=== PATIENT | female | born 1995 | race Hispanic/Latino ===

== ENCOUNTER 2021-10-04 22:15 | Emergency (ER) | payer BC ==
[2021-10-04 23:05] LABS: #Eosinphils 0.3 10x3/uL (0.0-0.5); %Basophils 0.3 % (0.0-2.0); %Eosinophils 2.7 % (0.0-6.0); %Monocytes 8.5 % (0.0-10.0); %Neutrophils 67.2 % (40.0-75.0); Hemoglobin 11.7 g/dL (12.0-15.5); Mean Corpuscular HGB CONC 32.7 g/dL (32.0-36.0); Mean Corpuscular Hemoglobin 25.7 pg (27.0-33.0); Mean Corpuscular Volume 78.7 fl (81.6-98.3); Mean Platelet Volume 9.8 fl (7.4-10.4); Platelet Count 381 10x3/uL (150-450); RBC Distribution Width 13.7 % (11.5-14.5); Red Blood Cell (RBC) Count 4.55 10x6/uL (3.90-5.03); White Blood Cell (WBC) Count 11.9 10x3/uL (3.5-10.5)
[2021-10-04 23:18] LABS: ALT (SGPT) 12 U/L (8-55); AST (SGOT) 14 U/L (5-34); Alkaline Phosphatase 79 U/L (40-110); Anion Gap 12 mmol/L (10-20); BUN (Urea Nitrogen) 12 mg/dL (7.0-18.7); Bilirubin, Total 0.2 mg/dL (0.2-1.2); Calc. Creatinine Clearance 0 mL/min (70-130); Calcium 9.1 mg/dL (7.8-10.44); Carbon Dioxide 24 mmol/L (22-29); Chloride 106 mmol/L (98-107); Estimated GFR 105; Globulin 3.1 g/dL (2.4-3.5); Glucose 88 mg/dL (70-105); Potassium 3.7 mmol/L (3.5-5.1); Protein, Total 7.1 g/dL (6.0-8.3); Sodium 138 mmol/L (136-145)
== END 2021-10-05 00:35 | disposition home or self-care (01) ==
LOC: CSHERS 22:15
DX: O20.0 Threatened abortion (principal); O99.511 Diseases of the respiratory system complicating pregnancy, first trimester; J45.909 Unspecified asthma, uncomplicated; Z3A.01 Less than 8 weeks gestation of pregnancy
CPT/HCPCS: 36415; 76856; 80053; 84702; 85025; 86900; 86901

== ENCOUNTER 2021-10-08 18:49 | Emergency (ER) | payer BC ==
[2021-10-08 20:27] LABS: #Basophils 0.1 10x3/uL (0.0-0.2); #Eosinphils 0.2 10x3/uL (0.0-0.5); #Monocytes 0.7 10x3/uL (0.0-1.1); #Neutrophils 5.3 10x3/uL (1.5-8.4); %Basophils 0.8 % (0.0-2.0); %Eosinophils 2.4 % (0.0-6.0); %Lymphocytes 21.2 % (18.0-47.0); %Monocytes 8.5 % (0.0-10.0); %Neutrophils 66.8 % (40.0-75.0); Hemoglobin 12.2 g/dL (12.0-15.5); Mean Corpuscular HGB CONC 32.2 g/dL (32.0-36.0); Mean Corpuscular Volume 80.6 fl (81.6-98.3); Mean Platelet Volume 10.1 fl (7.4-10.4); Platelet Count 391 10x3/uL (150-450); RBC Distribution Width 14.1 % (11.5-14.5)
== END 2021-10-08 22:48 | disposition home or self-care (01) ==
LOC: CSHERS 18:49
DX: O20.0 Threatened abortion (principal); Z3A.01 Less than 8 weeks gestation of pregnancy
CPT/HCPCS: 76856; 84702; 85025; 86900; 86901

== ENCOUNTER 2021-10-09 20:27 | Emergency (ER) | payer BC ==
[2021-10-09 21:18] LABS: Bilirubin Neg (Negative); Blood, Urine 250 (Negative); Clarity Cloudy (Clear); Glucose, Urine (Dipstick) Normal (Negative); Ketone, Urine 5 mg/dL (Negative); Leukocyte 25 (Negative); Nitrite Negative (Negative); Protein, Urine (Dipstick) 30 mg/dl (Neg-Trace); Specific Gravity, Urine 1.025 (1.002-1.036); Urobilinogen Normal mg/dL (Less than 2)
[2021-10-09 21:30] LABS: Bacteria/HPF 1+ HPF (None Seen); Mucous/LPF None Seen LPF (<2+); RBC/HPF Greater than 50 HPF (0-3); Squamous Epithelial 0-3 HPF (0-3); WBC/HPF 0-3 HPF (0-3)
[2021-10-09] MEDS ORDERED: Morphine 4 MG/ML VIAL ONE ×2 (21:34→23:36)
[2021-10-09 21:51] LABS: #Eosinphils 0.2 10x3/uL (0.0-0.5); #Neutrophils 8.8 10x3/uL (1.5-8.4); %Basophils 0.3 % (0.0-2.0); %Eosinophils 1.7 % (0.0-6.0); %Lymphocytes 16.6 % (18.0-47.0); %Monocytes 8.4 % (0.0-10.0); %Neutrophils 72.8 % (40.0-75.0); Mean Corpuscular HGB CONC 33.1 g/dL (32.0-36.0); Mean Corpuscular Volume 78.6 fl (81.6-98.3); Mean Platelet Volume 10.3 fl (7.4-10.4); Platelet Count 382 10x3/uL (150-450); RBC Distribution Width 14.4 % (11.5-14.5); Red Blood Cell (RBC) Count 4.62 10x6/uL (3.90-5.03); White Blood Cell (WBC) Count 12.1 10x3/uL (3.5-10.5)
[2021-10-10] MEDS ORDERED: Ondansetron PF 4 MG/2 ML Vial ONE ×2 (00:08→04:03)
[2021-10-10] MEDS ORDERED: Rocuronium Bromide 10 MG/ML (10ML VIAL) ONE (00:08)
[2021-10-10] MEDS ORDERED: Lidocaine 1% PF 5 ML VIAL ONE (00:08)
[2021-10-10] MEDS ORDERED: Dexamethasone 4 mg/ml Vial ONE (00:08)
[2021-10-10] MEDS ORDERED: Succinylcholine 200 MG/10 ml SYRINGE FS ONE (00:08)
[2021-10-10] MEDS ORDERED: PROPOFOL 20 ML ONE (00:08)
[2021-10-10] MEDS ORDERED: Fentanyl 250 MCG/5 ML VIAL ONE (00:08)
[2021-10-10] MEDS ORDERED: Bupivacaine 0.25% HCL 30 ML VIAL ONE (00:10)
[2021-10-10] MEDS ORDERED: EPINEPHrine 1 MG/ML AMP ONE (00:10)
[2021-10-10] MEDS ORDERED: Midazolam HCl 2 mg/2 ml Vial ONE ×2 (00:25→02:47)
[2021-10-10] MEDS ORDERED: Glycopyrrolate 0.2 MG/ML 5 ML SYRINGE ONE (02:05)
[2021-10-10] MEDS ORDERED: Ketorolac Tromethamine 30 MG/ML VIAL ONE (02:34)
== END 2021-10-10 00:31 | disposition admitted as inpatient to this hospital (09) ==
LOC: CSHERS 20:27
PROC: 10T24ZZ Resection of Products of Conception, Ectopic, Percutaneous Endoscopic Approach (ICD-10-PCS; principal; 2021-10-10)
PROC: 0UB64ZZ Excision of Left Fallopian Tube, Percutaneous Endoscopic Approach (ICD-10-PCS; 2021-10-10)
DX: O00.102 Left tubal pregnancy without intrauterine pregnancy (principal)
CPT/HCPCS: 36415; 76856; 81003; 81015; 84702; 85025; 86850; 86900; 86901; 88305; 96372; 96374; C1776; J0171; J1100; J1885; J2250; J2270; J2405; J2704; J3010; S0020

== ENCOUNTER 2022-07-20 18:25 | Day surgery (SDC) | payer BC ==
[2022-07-20 18:41] VITALS: BMI 32.0
[2022-07-20] MEDS ORDERED: hydrALAZINE 20 MG/ML VIAL SLOW IVP PRN (19:58)
== END 2022-07-20 19:32 | disposition home or self-care (01) ==
LOC: CSHLD/OP 18:25
PROVIDERS: ATTEND Obstetrics & Gynecology
DX: O36.8120 Decreased fetal movements, second trimester, not applicable or unspecified (principal); Z79.899 Other long term (current) drug therapy; Z3A.22 22 weeks gestation of pregnancy

== ENCOUNTER 2022-08-13 19:46 | Day surgery (SDC) | payer BC, OTHER ==
[2022-08-13 20:47] LABS: Fetal Membranes Rupture No Membranes Rupture (No Rupture)
[2022-08-13] MEDS ORDERED: hydrALAZINE 20 MG/ML VIAL SLOW IVP PRN (21:20)
== END 2022-08-13 23:10 | disposition home or self-care (01) ==
LOC: CSHLD/OP 19:46
PROVIDERS: ATTEND Obstetrics & Gynecology
DX: O99.891 Other specified diseases and conditions complicating pregnancy (principal); O23.42 Unspecified infection of urinary tract in pregnancy, second trimester; N39.0 Urinary tract infection, site not specified; O99.512 Diseases of the respiratory system complicating pregnancy, second trimester; J45.909 Unspecified asthma, uncomplicated; Z3A.25 25 weeks gestation of pregnancy; R05.9 Cough, unspecified
CPT/HCPCS: 76705; 84112; 99283

== ENCOUNTER 2022-10-27 18:24 | Inpatient (IN) | payer BC, OTHER ==
[2022-10-27 18:41] VITALS: BMI 34.5
[2022-10-27] MEDS ORDERED: hydrALAZINE 20 MG/ML VIAL SLOW IVP PRN ×2 (19:05→20:04)
[2022-10-27] MEDS ORDERED: Lactated Ringer's 1,000 ML IV SCH ×2 (19:15→20:15)
[2022-10-27 20:02] LABS: Bilirubin Neg (Negative); Blood, Urine Negative (Negative); Glucose, Urine (Dipstick) Normal (Negative); Ketone, Urine Negative (Negative); Leukocyte 100 (Negative); Nitrite Negative (Negative); Protein, Urine (Dipstick) Negative (Neg-Trace); Urobilinogen Normal mg/dL (Less than 2)
[2022-10-27 20:03] LABS: Clarity Clear (Clear)
[2022-10-27] MEDS ORDERED: Acetaminophen 500 MG TAB PO PRN (20:04)
[2022-10-27] MEDS ORDERED: Carboprost 250 MCG/ML AMP IM PRN (20:04)
[2022-10-27] MEDS ORDERED: Ondansetron PF 4 MG/2 ML Vial IVP PRN (20:04)
[2022-10-27] MEDS ORDERED: Methylergonovine 0.2 MG/ML VIAL IM PRN (20:04)
[2022-10-27] MEDS ORDERED: Tranexamic Acid 1,000 MG/10 ML VIAL IVP PRN (20:04)
[2022-10-27] MEDS ORDERED: fentaNYL 50 mcg/mL 1 mL Vial SLOW IVP PRN (20:04)
[2022-10-27] MEDS ORDERED: Promethazine HCl 25 MG/ML VIAL IM PRN (20:04)
[2022-10-27] MEDS ORDERED: Misoprostol 200 MCG TAB PR PRN (20:04)
[2022-10-27] MEDS ORDERED: Zolpidem Tartrate 5 MG TAB PO PRN (20:04)
[2022-10-27] MEDS ORDERED: Diphenoxylate HCl/Atropine Tablet PO PRN (20:04)
[2022-10-27] MEDS ORDERED: Lidocaine 1% (PF) 30 ML VIAL SC PRN (20:04)
[2022-10-27] MEDS ORDERED: Penicillin G Potassium 5 MILL.UNITS in Sodium Chloride 0.9% 100 ML IVPB SCH (20:15)
[2022-10-27] MEDS ORDERED: NS w/ Oxytocin 30 units 500 ML IV SCH (20:15)
[2022-10-27] MEDS ORDERED: Betamet Acet/Betamet Na Ph 30 MG/5 ML VIAL IM SCH (20:15)
[2022-10-27 20:19] LABS: Bacteria/HPF None Seen HPF (None Seen); CAUTI Indications for Culture Pelvic or flank pain; RBC/HPF None Seen HPF (0-3); Squamous Epithelial 0-3 HPF (0-3); Urine Culture Reflex No No; WBC/HPF 0-3 HPF (0-3)
[2022-10-27 20:44] LABS: Hematocrit 31.4 % (34.9-44.5); Hemoglobin 9.8 g/dL (12.0-15.5); Mean Corpuscular HGB CONC 31.2 g/dL (32.0-36.0); Mean Corpuscular Hemoglobin 23.4 pg (27.0-33.0); Mean Corpuscular Volume 75.1 fl (81.6-98.3); Mean Platelet Volume 10.5 fl (7.4-10.4); Platelet Count 344 10x3/uL (150-450); RBC Distribution Width 18.9 % (11.5-14.5); Red Blood Cell (RBC) Count 4.18 10x6/uL (3.90-5.03); White Blood Cell (WBC) Count 11.3 10x3/uL (3.5-10.5)
[2022-10-27 21:09] LABS: HBSAg Index 0.32 S/CO (0-0.99); Hep B Surf Ag - L&D Non-Reactive S/CO (NonReactive); Syphilis Antibody Nonreactive (Nonreactive); Syphilis Antibody Index 0.17 S/CO (<1.00 Non-Reactive)
[2022-10-27] MEDS ORDERED: Penicillin G 2.5 MILL.units 2.5 MILL.UNITS in Premix Bag 1 BAG IVPB SCH (23:59)
== END 2022-10-28 06:50 | disposition home or self-care (01) | DRG 832 ==
LOC: CSHLD/OP 18:24 → CSHLD 20:31
PROVIDERS: ADMIT Obstetrics & Gynecology; ATTEND Obstetrics & Gynecology
DX: O60.03 Preterm labor without delivery, third trimester (principal); O26.873 Cervical shortening, third trimester; Z3A.36 36 weeks gestation of pregnancy
CPT/HCPCS: 81001; 85027; 86780; 86850; 86900; 86901; 87340; 99285; J2405; J2540; J3010; J3490

== ENCOUNTER 2022-11-07 21:46 | Observation (INO) | payer BC, OTHER ==
[2022-11-07 22:23] VITALS: BMI 36.3
[2022-11-07] MEDS ORDERED: hydrALAZINE 20 MG/ML VIAL SLOW IVP PRN (22:26)
[2022-11-08] MEDS ORDERED: fentaNYL 50 mcg/mL 1 mL Vial SLOW IVP SCH (00:45)
[2022-11-08] MEDS ORDERED: Lactated Ringer's 1,000 ML IV SCH (01:00)
[2022-11-08] MEDS ORDERED: hydrALAZINE 20 MG/ML VIAL SLOW IVP PRN (01:31)
[2022-11-08] MEDS ORDERED: Ondansetron PF 4 MG/2 ML Vial IVP PRN (01:31)
[2022-11-08] MEDS ORDERED: Diphenoxylate HCl/Atropine Tablet PO PRN (01:31)
[2022-11-08] MEDS ORDERED: Methylergonovine 0.2 MG/ML VIAL IM PRN (01:31)
[2022-11-08] MEDS ORDERED: Misoprostol 200 MCG TAB PR PRN (01:31)
[2022-11-08] MEDS ORDERED: Lidocaine 1% (PF) 30 ML VIAL SC PRN (01:31)
[2022-11-08] MEDS ORDERED: Carboprost 250 MCG/ML AMP IM PRN (01:31)
[2022-11-08] MEDS ORDERED: Promethazine HCl 25 MG/ML VIAL IM PRN (01:31)
[2022-11-08] MEDS ORDERED: fentaNYL 50 mcg/mL 1 mL Vial SLOW IVP PRN (01:31)
[2022-11-08] MEDS ORDERED: Tranexamic Acid 1,000 MG/10 ML VIAL IVP PRN (01:31)
[2022-11-08] MEDS ORDERED: Ibuprofen 800 MG TAB PO PRN (01:31)
[2022-11-08] MEDS ORDERED: NS w/ Oxytocin 30 units 500 ML IV SCH (01:45)
== END 2022-11-08 07:22 | disposition home or self-care (01) ==
LOC: CSHLD/OP 21:46 → CSHLD 11-08 01:31
PROVIDERS: ADMIT Obstetrics & Gynecology; ATTEND Obstetrics & Gynecology
DX: O47.1 False labor at or after 37 completed weeks of gestation (principal); O26.873 Cervical shortening, third trimester; Z79.899 Other long term (current) drug therapy; Z3A.37 37 weeks gestation of pregnancy
CPT/HCPCS: 99285; G0378; J3010

== ENCOUNTER 2022-11-11 02:29 | Inpatient (IN) | payer BC, OTHER ==
[2022-11-11 02:55] VITALS: BMI 36.7
[2022-11-11 03:28] LABS: Fetal Membranes Rupture No Membranes Rupture (No Rupture)
[2022-11-11] MEDS ORDERED: Zolpidem Tartrate 5 MG TAB PO PRN (06:21)
[2022-11-11] MEDS ORDERED: Diphenoxylate HCl/Atropine Tablet PO PRN (06:21)
[2022-11-11] MEDS ORDERED: fentaNYL 50 mcg/mL 1 mL Vial SLOW IVP PRN (06:21)
[2022-11-11] MEDS ORDERED: Tranexamic Acid 1,000 MG/10 ML VIAL IVP PRN (06:21)
[2022-11-11] MEDS ORDERED: Misoprostol 200 MCG TAB PR PRN (06:21)
[2022-11-11] MEDS ORDERED: Lidocaine 1% (PF) 30 ML VIAL SC PRN (06:21)
[2022-11-11] MEDS ORDERED: Acetaminophen 500 MG TAB PO PRN (06:21)
[2022-11-11] MEDS ORDERED: hydrALAZINE 20 MG/ML VIAL SLOW IVP PRN ×2 (06:21→19:21)
[2022-11-11] MEDS ORDERED: Methylergonovine 0.2 MG/ML VIAL IM PRN (06:21)
[2022-11-11] MEDS ORDERED: Promethazine HCl 25 MG/ML VIAL IM PRN ×2 (06:21→07:43)
[2022-11-11] MEDS ORDERED: Ondansetron PF 4 MG/2 ML Vial IVP PRN ×2 (06:21→07:43)
[2022-11-11] MEDS ORDERED: Carboprost 250 MCG/ML AMP IM PRN (06:21)
[2022-11-11] MEDS ORDERED: NS w/ Oxytocin 30 units 500 ML IV SCH ×2 (06:30)
[2022-11-11] MEDS ORDERED: Lactated Ringer's 1,000 ML IV SCH (06:30)
[2022-11-11 06:59] LABS: Hematocrit 29.7 % (34.9-44.5); Hemoglobin 9.5 g/dL (12.0-15.5); Mean Corpuscular Hemoglobin 23.8 pg (27.0-33.0); Mean Corpuscular Volume 74.3 fl (81.6-98.3); Mean Platelet Volume 10.8 fl (7.4-10.4); Platelet Count 308 10x3/uL (150-450); RBC Distribution Width 18.7 % (11.5-14.5); White Blood Cell (WBC) Count 10.8 10x3/uL (3.5-10.5)
[2022-11-11] MEDS ORDERED: fentaNYL/Ropivacaine Epidural 100 ML ONE ×2 (07:02→14:32)
[2022-11-11] MEDS ORDERED: diphenhydrAMINE 50 MG/ML VIAL IVP PRN (07:43)
[2022-11-11] MEDS ORDERED: ePHEDrine Sulfate 50 MG/10 ML VIAL SLOW IVP PRN (07:43)
[2022-11-11] MEDS ORDERED: Acetaminophen 325 MG TAB PO PRN (07:43)
[2022-11-11] MEDS ORDERED: Moisturizing Cream (Eucerin) 113 GM JAR TOP PRN (07:43)
[2022-11-11] MEDS ORDERED: Lactated Ringer's 500 ML IV PRN (07:43)
[2022-11-11] MEDS ORDERED: Naloxone HCl 0.4 mg/ml Vial IVP PRN ×2 (07:43)
[2022-11-11] MEDS ORDERED: Communication Order-Pharmacy FS SCH (07:45)
[2022-11-11] MEDS ORDERED: fentaNYL 2 mcg/Ropivacaine 0.2% Epidural 100 ML CADD EPIDURAL SCH (07:45)
[2022-11-11] MEDS ORDERED: Bupivacaine 0.25% HCL 30 ML VIAL ONE (08:00)
[2022-11-11 08:18] LABS: HBSAg Index 0.26 S/CO (0-0.99); Hep B Surf Ag - L&D Non-Reactive S/CO (NonReactive); Syphilis Antibody Nonreactive (Nonreactive); Syphilis Antibody Index 0.19 S/CO (<1.00 Non-Reactive)
[2022-11-11] MEDS ORDERED: Boostrix 0.5 ML (Tdap) VIAL (>/=7 yrs of age) IM ONE (19:21)
[2022-11-11] MEDS ORDERED: Lanolin Ointment 7 GM TUBE TOP PRN (19:21)
[2022-11-11] MEDS ORDERED: HYDROcodone/Acetaminophen 5/325 mg Tablet PO PRN (19:21)
[2022-11-11] MEDS: Ibuprofen 800 MG TAB PO SCH (20:02)
[2022-11-11] MEDS: HYDROcodone/Acetaminophen 5/325 mg Tablet PO PRN ×2 (20:36→23:58)
[2022-11-11] MEDS: Milk Of Magnesia 30 ML UDCUP PO PRN (23:57)
[2022-11-11] MEDS: Benzocaine-Menthol 82.5 ML CAN TOP PRN (23:57)
[2022-11-11] MEDS: Docusate 100 MG CAP PO SCH (23:57)
[2022-11-12] MEDS: Ibuprofen 800 MG TAB PO SCH ×3 (03:45→19:56)
[2022-11-12] MEDS: Docusate 100 MG CAP PO SCH ×2 (08:36→19:56)
[2022-11-12] MEDS: Prenatal Vitamin 1 TAB PO SCH (08:36)
[2022-11-12] MEDS: Ferrous Sulfate 325 MG TAB PO SCH ×2 (08:36→18:47)
[2022-11-12] MEDS: HYDROcodone/Acetaminophen 5/325 mg Tablet PO PRN ×2 (09:01→19:57)
[2022-11-12] MEDS: Milk Of Magnesia 30 ML UDCUP PO PRN (19:56)
[2022-11-12 22:39] VITALS: BP 119/75; TEMP 98
[2022-11-13] MEDS: Ibuprofen 800 MG TAB PO SCH ×2 (03:40→13:02)
[2022-11-13] MEDS: HYDROcodone/Acetaminophen 5/325 mg Tablet PO PRN ×3 (06:18→15:03)
[2022-11-13] MEDS: Docusate 100 MG CAP PO SCH (10:26)
[2022-11-13] MEDS: Ferrous Sulfate 325 MG TAB PO SCH (10:26)
[2022-11-13] MEDS: Prenatal Vitamin 1 TAB PO SCH (10:26)
[2022-11-13] MEDS: Benzocaine-Menthol 82.5 ML CAN TOP PRN (16:04)
== END 2022-11-13 17:00 | disposition home or self-care (01) | DRG 768 ==
LOC: CSHLD/OP 02:29 → CSHPP 06:22 → UNDOADMIN 07:02 → CSHLD 07:02 → CSHPP 21:35 → CSHLD 21:35 → UNDODISIN 11-12 19:20 → UNDOADMIN 11-12 20:56 → CSHPP 11-12 20:56 → UNDODISIN 11-13 17:00
PROVIDERS: ADMIT Obstetrics & Gynecology; ATTEND Obstetrics & Gynecology
PROC: 10D07Z3 Extraction of Products of Conception, Low Forceps, Via Natural or Artificial Opening (ICD-10-PCS; principal; 2022-11-11)
PROC: 0DQR0ZZ Repair Anal Sphincter, Open Approach (ICD-10-PCS; 2022-11-11)
PROC: 3E033VJ Introduction of Other Hormone into Peripheral Vein, Percutaneous Approach (ICD-10-PCS; 2022-11-11)
DX: O42.02 Full-term premature rupture of membranes, onset of labor within 24 hours of rupture (principal); Z37.0 Single live birth; O26.873 Cervical shortening, third trimester; O70.20 Third degree perineal laceration during delivery, unspecified; Z3A.38 38 weeks gestation of pregnancy; O32.8XX0 Maternal care for other malpresentation of fetus, not applicable or unspecified
CPT/HCPCS: 51702; 76815; 84112; 85027; 86780; 86850; 86900; 86901; 87340; 99285; J2001; J2210; J2405; J2590; S0020

== ENCOUNTER 2023-09-05 13:50 | Observation (INO) | payer BC, OTHER, SELFPAY ==
[2023-09-05 15:11] LABS: #Basophils 0.05 10x3/uL (0.0-0.2); #Eosinphils 0.26 10x3/uL (0.0-0.5); #Monocytes 0.59 10x3/uL (0.0-1.1); #Neutrophils 4.82 10x3/uL (1.5-8.4); %Basophils 0.7 % (0.0-2.0); %Eosinophils 3.7 % (0.0-6.0); %Lymphocytes 17.4 % (18.0-47.0); %Monocytes 8.5 % (0.0-10.0); %Neutrophils 69.6 % (40.0-75.0); Hematocrit 32.7 % (34.9-44.5); Hemoglobin 10.3 g/dL (12.0-15.5); Mean Corpuscular HGB CONC 31.5 g/dL (32.0-36.0); Mean Corpuscular Hemoglobin 22.8 pg (27.0-33.0); Mean Corpuscular Volume 72.3 fL (81.6-98.3); Mean Platelet Volume 10.7 fL (7.4-10.4); Platelet Count 396 10x3/uL (150-450); RBC Distribution Width 16.6 % (11.5-14.5); Red Blood Cell (RBC) Count 4.52 10x6/uL (3.90-5.03); White Blood Cell (WBC) Count 6.9 10x3/uL (3.5-10.5)
[2023-09-05 15:14] LABS: BHCG - Serum POSITIVE (NEGATIVE); Pregs Control Background? CLEAR/WHITE (CLR/WHITE); Pregs Control Bar Appear? YES (CONTROL BAR)
[2023-09-05 15:21] LABS: ALT (SGPT) 9 U/L (8-55); AST (SGOT) 15 U/L (5-34); Albumin 3.7 g/dL (3.5-5.0); Alkaline Phosphatase 87 U/L (40-110); Anion Gap 11 mmol/L (10-20); BUN (Urea Nitrogen) 9 mg/dL (7.0-18.7); Bilirubin, Total 0.5 mg/dL (0.2-1.2); Calc. Creatinine Clearance 0 mL/min (70-130); Calcium 8.8 mg/dL (7.8-10.44); Carbon Dioxide 21 mmol/L (22-29); Chloride 110 mmol/L (98-107); Estimated GFR 100; Globulin 3.4 g/dL (2.4-3.5); Glucose 84 mg/dL (70-105); Potassium 3.6 mmol/L (3.5-5.1); Protein, Total 7.1 g/dL (6.0-8.3); Sodium 138 mmol/L (136-145)
[2023-09-05] MEDS ORDERED: Morphine 4 MG/ML VIAL ONE (16:02)
[2023-09-05] MEDS ORDERED: Ondansetron PF 4 MG/2 ML Vial ONE ×2 (16:02→18:02)
[2023-09-05 16:19] LABS: Anisocytosis SLIGHT = 6-15 cells (100X) (0-5/hpf); Microcytosis SLIGHT = 6-15 cells (100X) (0-5/hpf); Ovalocytes SLIGHT = 2-5 cells (100X) (0-1/hpf)
[2023-09-05 16:20] LABS: Elliptocytes SLIGHT = 2-5 cells (100X) (0-1/hpf)
[2023-09-05 16:21] LABS: Large Platelets SLIGHT (None Seen); Platelet Adequacy Comment Appears Adequate
[2023-09-05] MEDS ORDERED: Bupivacaine PF 0.5% 30 ML VIAL ONE (17:13)
[2023-09-05] MEDS ORDERED: EPINEPHrine 1 MG/ML VIAL ONE (17:13)
[2023-09-05] MEDS ORDERED: Lidocaine 2% PF 5 ML VIAL ONE (17:45)
[2023-09-05] MEDS ORDERED: fentaNYL 50 mcg/mL 1 mL Vial ONE ×2 (17:45→20:33)
[2023-09-05] MEDS ORDERED: PROPOFOL 20 ML ONE (17:45)
[2023-09-05] MEDS ORDERED: Rocuronium Bromide 10 MG/ML (10ML VIAL) ONE (17:46)
[2023-09-05] MEDS ORDERED: Midazolam HCl 2 mg/2 ml Vial ONE ×2 (17:52→18:54)
[2023-09-05 17:56] LABS: Bilirubin Neg (Negative); Blood, Urine 250 (Negative); Clarity Clear (Clear); Glucose, Urine (Dipstick) Normal (Negative); Ketone, Urine Negative (Negative); Leukocyte 25 (Negative); Nitrite Negative (Negative); Protein, Urine (Dipstick) Negative (Neg-Trace); Urobilinogen Normal mg/dL (Less than 2)
[2023-09-05] MEDS ORDERED: Dexamethasone 20 MG/5 ML VIAL ONE (18:02)
[2023-09-05 18:09] LABS: Bacteria/HPF 2+ HPF (None Seen); CAUTI Indications for Culture Pelvic or flank pain; Mucous/LPF 1+ LPF (<2+); RBC/HPF 0-3 HPF (0-3)
[2023-09-05 18:10] LABS: Urine Culture Reflex No No
[2023-09-05] MEDS ORDERED: SUGAMMADEX SODIUM 200 MG/2 ML VIAL ONE ×2 (18:22→18:46)
[2023-09-05] MEDS ORDERED: Ondansetron PF 4 MG/2 ML Vial IVP PRN (19:56)
[2023-09-05] MEDS: Ketorolac Tromethamine 30 MG (1 mL) VIAL IVP PRN (21:47)
[2023-09-05] MEDS: Lactated Ringer's 1,000 ML IV SCH (21:47)
[2023-09-06] MEDS: HYDROcodone/Acetaminophen 5/325 mg Tablet PO PRN (00:22)
[2023-09-06] MEDS: Simethicone Chewable 80 MG TAB PO PRN (00:23)
[2023-09-06 04:38] LABS: Mean Corpuscular HGB CONC 31.3 g/dL (32.0-36.0); Mean Corpuscular Hemoglobin 22.8 pg (27.0-33.0); Mean Corpuscular Volume 72.9 fL (81.6-98.3); Mean Platelet Volume 11.3 fL (7.4-10.4); Platelet Count 394 10x3/uL (150-450); RBC Distribution Width 16.5 % (11.5-14.5); Red Blood Cell (RBC) Count 4.39 10x6/uL (3.90-5.03); White Blood Cell (WBC) Count 10.4 10x3/uL (3.5-10.5)
[2023-09-06 07:44] VITALS: BP 108/60; TEMP 98.4
== END 2023-09-06 09:30 | disposition home or self-care (01) ==
LOC: CSHERS 13:50 → CSHSDC 17:50 → CSHPP 21:25
PROVIDERS: ADMIT Obstetrics & Gynecology; ATTEND Obstetrics & Gynecology
PROC: 10T Obstetrics, Pregnancy, Resection (ICD-10-PCS; principal; 2023-09-06)
PROC: 0UT64ZZ Resection of Left Fallopian Tube, Percutaneous Endoscopic Approach (ICD-10-PCS; 2023-09-06)
DX: O00.90 Unspecified ectopic pregnancy without intrauterine pregnancy (principal); N70.91 Salpingitis, unspecified; J45.909 Unspecified asthma, uncomplicated; Z79.51 Long term (current) use of inhaled steroids; Z79.899 Other long term (current) drug therapy; Z90.79 Acquired absence of other genital organ(s)
CPT/HCPCS: 36415; 71045; 76856; 80053; 81001; 84702; 84703; 85025; 85027; 86900; 86901; 88305; 96374; 96375; J0171; J0665; J1100; J1885; J2001; J2250; J2270; J2405; J2704; J3010; J7120